=== PATIENT | female | born 1980 | race Caucasian/White ===

== ENCOUNTER 2017-08-16 22:24 | Emergency (ER) | payer MEDICAID ==
[~2017-08-16] VITALS: Ht 175.3 cm; Wt 71.1 kg
[2017-08-16 23:07] LABS: BASOPHILS # (AUTO) 0.02 x10^3/uL (0-0.1); BASOPHILS % (AUTO) 0 % (0-1); EOSINOPHILS % (AUTO) 2 % (1-7); LYMPHOCYTES # (AUTO) 1.11 x10^3/uL (1-3.4); LYMPHOCYTES % (AUTO) 19 % (22-44); MD NO; MEAN CORPUSCULAR HEMOGLOBIN 26.6 pg (27.0-34.8); MEAN CORPUSCULAR HGB CONC 33.3 g/dL (32.4-35.8); MEAN CORPUSCULAR VOLUME 79.9 fL (80-100); MEAN PLATELET VOLUME 9.5 fL (7.4-10.4); MONOCYTES # (AUTO) 0.23 x10^3/uL (0.2-0.8); MONOCYTES % (AUTO) 4 % (2-9); NEUTROPHILS # (AUTO) 4.52 x10^3/uL (1.8-6.8); NEUTROPHILS % (AUTO) 76 % (42-75); PLATELET COUNT 173 x10^3/uL (130-400); RED BLOOD COUNT 4.65 x10^6/uL (3.82-5.3); RED CELL DISTRIBUTION WIDTH 15.8 % (9.6-15.2)
[2017-08-16 23:10] VITALS: BP 119/72
[2017-08-16 23:22] LABS: ALBUMIN 3.6 g/dL (3.4-5.0); ANION GAP 9 mmol/L (5-15); CALCIUM 9.1 mg/dL (8.5-10.1); CHLORIDE 105 mmol/L (98-107); CREATININE 0.83 mg/dL (0.55-1.02)
[2017-08-16 23:25] LABS: TROPONIN I < 0.015 ng/mL (0.000-0.045)
== END 2017-08-17 00:44 | disposition home or self-care (01) ==
LOC: ED 23:59
DX: R53.1 Weakness (principal); Z76.5 Malingerer [conscious simulation]; Z72.89 Other problems related to lifestyle
CPT/HCPCS: 36415; 70450; 71045; 80048; 82040; 84484; 85025; 93005; 99285

== ENCOUNTER 2017-08-20 22:01 | Emergency (ER) | payer MEDICAID ==
[~2017-08-20] VITALS: Ht 175.3 cm; Wt 80.0 kg
[2017-08-20 22:03] VITALS: BP 138/87
== END 2017-08-21 01:46 | disposition home or self-care (01) ==
LOC: ED 22:33
DX: G89.29 Other chronic pain (principal); M43.16 Spondylolisthesis, lumbar region
CPT/HCPCS: 72110; 99284

== ENCOUNTER 2018-01-31 13:35 | Emergency (ER) | payer MEDICAID ==
[~2018-01-31] VITALS: Ht 170.2 cm; Wt 65.0 kg
[2018-01-31 13:53] VITALS: BP 112/72
[2018-01-31] MEDS ORDERED: ACETAMINOPHEN 325 MG TABLET PO ONE (14:30)
[2018-01-31] MEDS ORDERED: ACETAMINOPHEN 325 MG TABLET ONE (14:50)
== END 2018-01-31 15:05 | disposition home or self-care (01) ==
LOC: ED 14:59
DX: M79.644 Pain in right finger(s) (principal); Z90.89 Acquired absence of other organs; F17.200 Nicotine dependence, unspecified, uncomplicated
CPT/HCPCS: 29130; 99284

== ENCOUNTER 2018-05-03 17:22 | Emergency (ER) | payer MEDICAID ==
[~2018-05-03] VITALS: Ht 175.3 cm; Wt 72.8 kg
[2018-05-03 17:33] VITALS: BP 123/82
[2018-05-03] MEDS ORDERED: FAMOTIDINE 20 MG TABLET PO ONE (18:00)
[2018-05-03] MEDS ORDERED: FAMOTIDINE 20 MG TABLET ONE (18:15)
== END 2018-05-03 18:47 | disposition home or self-care (01) ==
LOC: ED 18:37
DX: L50.9 Urticaria, unspecified (principal); L03.113 Cellulitis of right upper limb; F17.200 Nicotine dependence, unspecified, uncomplicated; Z72.9 Problem related to lifestyle, unspecified
CPT/HCPCS: 99284; J7512; Q0177

== ENCOUNTER 2018-08-09 15:23 | Inpatient (IN) | payer MEDICAID ==
[~2018-08-09] VITALS: Ht 175.3 cm; Wt 72.2 kg
[2018-08-09] MEDS ORDERED: CLINDAMYCIN PMX 900MG/50ML 50 ML IV ONE (17:30)
[2018-08-09 17:53] LABS: BASOPHILS # (AUTO) 0.01 x10^3/uL (0-0.1); BASOPHILS % (AUTO) 0 % (0-1); EOSINOPHILS # (AUTO) 0.01 x10^3/uL (0-0.4); EOSINOPHILS % (AUTO) 0 % (1-7); LYMPHOCYTES # (AUTO) 0.57 x10^3/uL (1-3.4); LYMPHOCYTES % (AUTO) 7 % (22-44); MD NO; MEAN CORPUSCULAR HEMOGLOBIN 28.1 pg (27.0-34.8); MEAN CORPUSCULAR HGB CONC 34.2 g/dL (32.4-35.8); MEAN CORPUSCULAR VOLUME 82.3 fL (80-100); MEAN PLATELET VOLUME 9.8 fL (7.4-10.4); MONOCYTES # (AUTO) 0.24 x10^3/uL (0.2-0.8); MONOCYTES % (AUTO) 3 % (2-9); NEUTROPHILS # (AUTO) 7.11 x10^3/uL (1.8-6.8); NEUTROPHILS % (AUTO) 90 % (42-75); PLATELET COUNT 183 x10^3/uL (130-400); RED CELL DISTRIBUTION WIDTH 14.1 % (9.6-15.2)
[2018-08-09] MEDS ORDERED: CLINDAMYCIN PMX 900MG/50ML 50 ML ONE (17:59)
[2018-08-09] MEDS ORDERED: KETOROLAC 30 MG/1 ML ONE (17:59)
[2018-08-09] MEDS ORDERED: KETOROLAC 30 MG/1 ML IVPush ONE (18:00)
--- NOTE | 2018-08-09 18:05 | NUR ---
IV PLACED, LABS AND CULTURES DRAWN IN PIT. ABX STARTED PER AUG AND PT MEDICATED FOR PAIN. CONNECTED TO MONITOR, VSS. FAMILY AT BEDSIDE. CALL LIGHT WITHIN REACH
[2018-08-09 18:07] LABS: ALANINE AMINOTRANSFERASE 18 U/L (12-78); ALBUMIN 3.4 g/dL (3.4-5.0); ANION GAP 5 mmol/L (5-15); CALCIUM 8.5 mg/dL (8.5-10.1); CHLORIDE 107 mmol/L (98-107); CREATININE 0.91 mg/dL (0.55-1.02)
[2018-08-09 18:12] LABS: ALKALINE PHOSPHATASE 95 U/L (45-117); BILIRUBIN,TOTAL 0.7 mg/dL (0.2-1.0); TOTAL PROTEIN 7.7 g/dL (6.4-8.2)
--- NOTE | 2018-08-09 18:52 | NUR ---
MD TO BEDSIDE TO ASSESS PT, TO BE ADMITTED TO [facility]
--- NOTE | 2018-08-09 19:29 | NUR ---
REPORT TO CONSTANTINE FOR ROOM [id number].
[2018-08-09 19:47] VITALS: BP 101/68
[2018-08-09] MEDS ORDERED: POLYETHYLENE GLYCOL 17 GM PACKET PO PRN (20:00)
[2018-08-09] MEDS ORDERED: ONDANSETRON ODT 4 MG PO PRN (20:00)
[2018-08-09] MEDS ORDERED: KETOROLAC 30 MG/1 ML IV PRN (20:00)
[2018-08-09] MEDS ORDERED: OXYcodone IR 5MG TABLET PO PRN (20:00)
[2018-08-09] MEDS ORDERED: ACETAMINOPHEN 325 MG TABLET PO PRN (20:00)
[2018-08-09] MEDS ORDERED: BISACODYL 10 MG SUPP PR PRN (20:00)
[2018-08-09] MEDS ORDERED: hydrALAzine 20 MG/ML, 1ML IVPush PRN (20:00)
[2018-08-09] MEDS ORDERED: ONDANSETRON 2MG/ML, 2ML IVPush PRN (20:00)
[2018-08-09] MEDS ORDERED: DOCUSATE 100 MG CAPSULE PO PRN (20:00)
[2018-08-09] MEDS ORDERED: morphine SULFATE 10 MG/ML, 1ML IVPush PRN (20:00)
[2018-08-09] MEDS ORDERED: PROMETHAZINE 25 MG/ML, 1ML IM PRN (20:00)
[2018-08-09 20:29] LABS: FREE T4 (FREE THYROXINE) 1.77 ng/dL (0.76-1.46); THYROID STIMULATING HORMONE 0.834 mIU/L (0.358-3.740)
[2018-08-09 20:31] LABS: HEMOGLOBIN A1C 5.3 % (4.2-6.3)
[2018-08-09] MEDS: NICOTINE 7 MG/24 HR PATCH.TD24 TD SCH (20:51)
[2018-08-09] MEDS: SODIUM CHLORIDE 0.9% 1,000 ML IV SCH (20:52)
[2018-08-09] MEDS ORDERED: POTASSIUM CHLORIDE 20 MEQ TAB.ER.PRT PO ONE (21:00)
[2018-08-09] MEDS: CLINDAMYCIN PMX 600MG/50ML 50 ML IV SCH (23:30)
[2018-08-10 01:45] VITALS: BP 100/61
[2018-08-10 05:16] LABS: ALANINE AMINOTRANSFERASE 15 U/L (12-78); ALBUMIN 2.5 g/dL (3.4-5.0); ANION GAP 5 mmol/L (5-15); CHLORIDE 110 mmol/L (98-107); CHOLESTEROL, TOTAL 92 mg/dL (140-239); CREATININE 0.79 mg/dL (0.55-1.02)
[2018-08-10 05:18] LABS: ALKALINE PHOSPHATASE 87 U/L (45-117); BILIRUBIN,TOTAL 0.7 mg/dL (0.2-1.0); CHOL/HDL RATIO 2.4; HDL CHOL % 41 % (28-40); HDL CHOLESTEROL (DIRECT) 38 mg/dL (40-60); LDL CHOLESTEROL,CALCULATED 44 mg/dL (54-169); LDL/HDL RATIO 1.2 (0.5-3.0); TOTAL PROTEIN 6.3 g/dL (6.4-8.2); TRIGLYCERIDES 50 mg/dL (50-200); VLDL CHOLESTEROL 10 mg/dL (0-25)
[2018-08-10 05:20] LABS: BASOPHILS # (AUTO) 0.01 x10^3/uL (0-0.1); BASOPHILS % (AUTO) 0 % (0-1); EOSINOPHILS # (AUTO) 0.09 x10^3/uL (0-0.4); EOSINOPHILS % (AUTO) 2 % (1-7); LYMPHOCYTES # (AUTO) 1.11 x10^3/uL (1-3.4); LYMPHOCYTES % (AUTO) 21 % (22-44); MD NO; MEAN CORPUSCULAR HEMOGLOBIN 27.3 pg (27.0-34.8); MEAN CORPUSCULAR HGB CONC 32.9 g/dL (32.4-35.8); MEAN PLATELET VOLUME 10.2 fL (7.4-10.4); MONOCYTES # (AUTO) 0.42 x10^3/uL (0.2-0.8); MONOCYTES % (AUTO) 8 % (2-9); NEUTROPHILS # (AUTO) 3.62 x10^3/uL (1.8-6.8); NEUTROPHILS % (AUTO) 69 % (42-75); PLATELET COUNT 149 x10^3/uL (130-400); RED BLOOD COUNT 4.12 x10^6/uL (3.82-5.3); RED CELL DISTRIBUTION WIDTH 14.3 % (9.6-15.2)
[2018-08-10] MEDS: SODIUM CHLORIDE 0.9% 1,000 ML IV SCH (05:44)
[2018-08-10] MEDS: CLINDAMYCIN PMX 600MG/50ML 50 ML IV SCH ×3 (05:44→18:08)
[2018-08-10 07:26] VITALS: BP 100/67
[2018-08-10 20:05] VITALS: BP 107/70
[2018-08-10] MEDS: NICOTINE 7 MG/24 HR PATCH.TD24 TD SCH (21:45)
[2018-08-11] MEDS: CLINDAMYCIN PMX 600MG/50ML 50 ML IV SCH ×5 (00:10→23:34)
[2018-08-11 02:01] VITALS: BP 109/63
[2018-08-11 06:58] VITALS: BP 116/75
[2018-08-11] MEDS ORDERED: NEOSPORIN OINT, 15GM ONE (09:42)
[2018-08-11] MEDS ORDERED: LIDOCAINE 1%-EPI 1:100K, 30ML ONE (09:42)
[2018-08-11] MEDS ORDERED: MIDAZOLAM 1 MG/ML, 2ML ONE (09:55)
[2018-08-11] MEDS ORDERED: FENTANYL PF 250 MCG/5ML ONE ×2 (09:55→11:39)
[2018-08-11] MEDS ORDERED: CLINDAMYCIN 150 MG/ML, 6ML ONE (09:57)
[2018-08-11 10:32] LABS: AMPHETAMINE SCREEN, URINE Positive (Negative); BARBITURATE SCREEN, URINE Negative (Negative); BENZODIAZEPINE SCREEN, URINE Negative (Negative); CANNABINOID SCREEN, URINE Positive (Negative); COCAINE SCREEN, URINE Negative (Negative); METHADONE SCREEN, URINE Negative (Negative); OPIATE SCREEN, URINE Negative (Negative)
[2018-08-11] MEDS ORDERED: PROPOFOL 50 ML ONE (10:38)
[2018-08-11] MEDS ORDERED: ONDANSETRON 2MG/ML, 2ML ONE (10:49)
[2018-08-11] MEDS ORDERED: SUCCINYLCHOLINE 20 MG/ML, 10ML ONE (10:49)
[2018-08-11] MEDS ORDERED: PROPOFOL 10 MG/ML, 20ML ONE (10:49)
[2018-08-11] MEDS ORDERED: DEXAMETHASONE 4 MG/ML, 5ML ONE (10:49)
[2018-08-11] MEDS ORDERED: FENTANYL PF 100 MCG/2ML ONE (13:16)
[2018-08-11] MEDS ORDERED: HYDROmorphone 1 MG/ML, 1ML ONE (13:33)
[2018-08-11] MEDS: FENTANYL PF 100 MCG/2ML IV PRN ×2 (13:43→13:49)
[2018-08-11] MEDS: HYDROmorphone 2 MG/ML, 1ML IVPush PRN ×3 (13:44→13:58)
[2018-08-11] MEDS ORDERED: PROMETHAZINE 25 MG/ML, 1ML IV PRN (14:00)
[2018-08-11] MEDS ORDERED: MORPHINE SULFATE 4 MG/ML, 1ML IVPush PRN (14:00)
[2018-08-11] MEDS ORDERED: ONDANSETRON 2MG/ML, 2ML IV PRN (14:00)
[2018-08-11] MEDS ORDERED: MEPERIDINE/PF 25MG/0.5ML IVPush PRN (14:00)
[2018-08-11] MEDS ORDERED: LORazepam 2 MG/ML, 1ML IVPush PRN (14:00)
[2018-08-11] MEDS ORDERED: MIDAZOLAM 1 MG/ML, 2ML IV PRN (14:00)
[2018-08-11 19:19] VITALS: BP 103/72
[2018-08-11] MEDS: NICOTINE 7 MG/24 HR PATCH.TD24 TD SCH (20:39)
[2018-08-12 01:36] VITALS: BP 108/65
[2018-08-12] MEDS: CLINDAMYCIN PMX 600MG/50ML 50 ML IV SCH (05:37)
[2018-08-12 07:14] VITALS: BP 125/72
[2018-08-12] MEDS: CLINDAMYCIN 300 MG CAPSULE PO SCH ×2 (09:35→15:35)
[2018-08-12 13:07] VITALS: BP 99/68
[2018-08-12] MEDS ORDERED: IBUP-1222 PO (15:30)
[2018-08-12] MEDS ORDERED: CLIN300C8 PO (15:30)
[2018-08-14] MEDS ORDERED: IBUPROFEN 600 MG TABLET PO PRN (20:00)
== END 2018-08-12 18:11 | disposition home or self-care (01) | DRG 131 ==
LOC: ED 19:16 → EDIP 19:20 → 3NW 19:39
PROVIDERS: ADMIT Internal Medicine; ATTEND Internal Medicine
PROC: 0NQT0ZZ Repair Right Mandible, Open Approach (ICD-10-PCS; 2018-08-11)
PROC: 0C940ZZ Drainage of Buccal Mucosa, Open Approach (ICD-10-PCS; 2018-08-11)
PROC: 0CDXXZ1 Extraction of Lower Tooth, Multiple, External Approach (ICD-10-PCS; 2018-08-11)
PROC: 0CDWXZ1 Extraction of Upper Tooth, Multiple, External Approach (ICD-10-PCS; 2018-08-11)
PROC: 0NQV0ZZ Repair Left Mandible, Open Approach (ICD-10-PCS; principal; 2018-08-11 10:00)
DX: K04.7 Periapical abscess without sinus (principal); L03.211 Cellulitis of face; K02.9 Dental caries, unspecified; Z83.3 Family history of diabetes mellitus; F12.10 Cannabis abuse, uncomplicated; E87.6 Hypokalemia; D64.9 Anemia, unspecified; F17.210 Nicotine dependence, cigarettes, uncomplicated; J38.5 Laryngeal spasm
CPT/HCPCS: 36415; 70100; 84145; 99285; S0077; 70486; 71045; 80053; 80061; 80307; 83036; 83605; 83735; 84439; 84443; 84702; 85025; 87040; 90656; 96374; 96375; G0378; J1100; J1170; J1885; J2250; J2405; J2704; J3010; J3490; J0330; J2270; J7030